=== PATIENT | female | born 1995 | race Caucasian/White ===

== ENCOUNTER 2017-01-15 20:38 | Emergency (ER) | payer SELFPAY ==
[2017-01-15 21:12] VITALS: BP 133/75
== END 2017-01-15 21:12 | disposition home or self-care (01) ==
LOC: ED 20:38
DX: S00.81XA Abrasion of other part of head, initial encounter (principal); W22.10XA Striking against or struck by unspecified automobile airbag, initial encounter; Y93.89 Activity, other specified; Y92.89 Other specified places as the place of occurrence of the external cause; Y99.8 Other external cause status

== ENCOUNTER 2017-06-26 11:02 | Emergency (ER) | payer SELFPAY ==
[~2017-06-26] VITALS: Ht 157.5 cm; Wt 70.5 kg
[2017-06-26 11:15] VITALS: BP 110/65
== END 2017-06-26 11:51 | disposition home or self-care (01) ==
LOC: ED 11:02
DX: J01.10 Acute frontal sinusitis, unspecified (principal); H01.006 Unspecified blepharitis left eye, unspecified eyelid

== ENCOUNTER 2018-02-04 20:04 | Emergency (ER) | payer OTHER ==
[~2018-02-04] VITALS: Ht 157.5 cm; Wt 71.7 kg
[2018-02-04 20:14] VITALS: Ht 157.5 cm; Wt 71.7 kg
[2018-02-04 22:35] VITALS: BP 126/77
== END 2018-02-04 22:35 | disposition home or self-care (01) ==
LOC: ED 20:04
DX: N94.0 Mittelschmerz (principal)

== ENCOUNTER 2018-09-17 13:05 | Emergency (ER) | payer OTHER | END 2018-09-17 14:06 | disposition left against medical advice (07) | LOC: ED 13:05 | DX: Z53.21 Procedure and treatment not carried out due to patient leaving prior to being seen by health care provider (principal) ==

== ENCOUNTER 2018-09-23 05:08 | Emergency (ER) | payer OTHER ==
[~2018-09-23] VITALS: Ht 160 cm; Wt 73.0 kg
[2018-09-23 05:16] VITALS: Ht 160 cm; Wt 73.0 kg
[2018-09-23 06:52] LABS: microscopic required? YES; urine erythrocyte NEGATIVE (NEGATIVE)
[2018-09-23 07:52] VITALS: BP 105/67
== END 2018-09-23 07:52 | disposition home or self-care (01) ==
LOC: ED 05:08
PROVIDERS: Emergency Medicine
DX: O26.891 Other specified pregnancy related conditions, first trimester (principal); R10.30 Lower abdominal pain, unspecified; R11.0 Nausea; Z3A.09 9 weeks gestation of pregnancy; Z88.0 Allergy status to penicillin